=== PATIENT | male | born 1980 | race Caucasian/White ===

== ENCOUNTER → 2021-08-26 10:12 | Outpatient (CLI) | payer OTHER, SELFPAY ==
--- NOTE | ~2021-08-26 | US_ITS ---
EXAMINATION: US scrotum doppler DATE: 08/26/2021 10:38 INDICATION: Scrotal mass. TECHNIQUE: Grayscale and Doppler ultrasound images of the testes were obtained. COMPARISON: Ultrasound 07/28/2010 FINDINGS: The right testis measures 5.0 x 2.2 x 3.1 cm. The left testis measures 4.2 x 2.6 x 2.9 cm. There is normal vascular flow to both testes. The right epididymis demonstrates a 4 mm cyst. The left epididymis demonstrates a 4.9 cm cyst. There is no varicocele or hydrocele. IMPRESSION: 1. Benign cysts in the epididymides. Reviewed, dictated and finalized at location A.
== END ==
PROVIDERS: PCP Internal Medicine; Visit Provider Urology
DX: N50.89 Other specified disorders of the male genital organs (principal); N50.3 Cyst of epididymis
CPT/HCPCS: 76870; 93976

== ENCOUNTER 2021-10-08 13:27 | Outpatient (CLI) | payer OTHER, SELFPAY ==
--- NOTE | 2021-10-08 13:34 | ECG_ITS ---
Measurements Intervals [place] Rate: 67 P: 70 ND: 148 QRS: 51 QRSD: 97 T: -8 QT: 384 QTc: 405 Interpretive Statements SINUS RHYTHM POSSIBLE LEFT ATRIAL ENLARGEMENT BORDERLINE T WAVE ABNORMALITY- INF/LAT LEADS BASELINE ARTIFACT- I, II, III, AVR, AVL, AVF, V4-V6 BORDERLINE ECG Electronically Signed On 10-08-2021 15:37:13 CDT by Mauricio Turcios D.O.
== END 2021-10-08 13:28 | disposition home or self-care (01) ==
PROVIDERS: PCP Internal Medicine; Visit Provider Urology
DX: N50.3 Cyst of epididymis (principal); I10 Essential (primary) hypertension; Z01.818 Encounter for other preprocedural examination; R94.31 Abnormal electrocardiogram [ECG] [EKG]
CPT/HCPCS: 87086; 93005

== ENCOUNTER 2021-10-12 00:09 | Day surgery (SDC) | payer OTHER, SELFPAY ==
[2021-10-08 09:24] VITALS: BMI 26.2
--- NOTE | 2021-10-08 09:35 | PC.NURSE ---
Report to the Outpatient Waiting Room, entrance under the green pavilion located off [facility], at time 6:30 on date 10/12/21. OR Time: 8:30. - You and your visitor will be asked a series of questions to screen for COVID 19 for your protection. - Only one visitor is allowed at this time. - The patient visitor is requested to leave or wait in car when not with patient. - A mask is required within the hospital. Patients may have clear liquids (water, carbonated beverages, clear teas, apple juice) until 3 hours prior to surgery (5:30) with a maximum of 20 ounces. - No food from midnight until time of surgery Take the following medications with a SIP of water the morning of surgery: AMLODIPINE Medications to discontinue per physician: N/A Date to take last dose: N/A Please no make-up, nail welsh, hairspray, perfume, deodorant, or body powder the day of surgery. No jewelry (including any body piercings) or valuables the day of surgery, leave them at home. Please take a shower or bath the night before, or the morning of, surgery with an antibacterial soap. Wear comfortable, loose fitting clothing. - Jewelry must be removed prior to entering the operating room. Rings and piercings that are not removed may be cut off. - The hospital will not accept responsibility for valuables. - Please leave all valuables, including medications, at home the day of surgery. If you are going home after surgery, a licensed long haul truck driver must drive you home. - NO public transportation without another adult. - We recommend that an adult stay with you for 24 hours following discharge. - We also recommend that you do not drive, make important decision, drink alcoholic beverages, or take any drugs that were not prescribed by your health care provider for at least 24 hours after your discharge time. Follow any additional instructions given to you from your surgeon. If you or anyone in your household have experienced Covid symptoms in the past week, please notify your surgeon or the nurse liaison at the phone number below for possible testing. Telephone instructions given to PT - AWAIS ARANDA and asked if any additional questions and then verbalized understanding. Patient advised to call surgeon office or pre surgery nurse liaison [phone] if any additional questions.
--- NOTE | 2021-10-11 15:05 | P.PNAN_ITS ---
Anes - Initial Pre Proc Eval Procedure: Operation Date: 10/12/21 08:30 Proposed Procedures p Scrotal Exploration with Excision of Left Epididymal Cyst - Price Linares MD s Bilateral Vasectomy - Price Linares MD Date/Time: 10/11/21 15:05 Surgeon: Price Linares MD Pre Op Diagnosis: left epidermal cyst Patient Data Age: 40 Gender: M Height: 1.91 m Weight: 95.25 kg Allergies Allergy/AdvReac Type Severity Reaction Status Date / Time No Known Allergies Allergy Mild Verified 10/12/21 06:45 Home Medications Medication Instructions Recorded Confirmed Type amlodipine 10 mg tablet 10 mg PO DAILY #90 tabs 10/11/21 10/12/21 Rx simvastatin 40 mg tablet 40 mg PO DAILY #90 tabs 10/11/21 10/12/21 Rx Patient hx anesthesia problems: post op nausea/vomiting Family hx anesthesia problems: none Results Review: All pre-operative results and documents have been reviewed as part of the pre- operative evaluation. FORMERLY [facility] Past Medical History Medical History Hyperlipidemia LDL goal <130 Hypertension Family History Family History Father Family history of elevated blood lipids Family history of type 2 diabetes mellitus Mother Family history of elevated blood lipids Family history of heart disease in male family member before age 55 Social History Social History Smoking status: Never smoker Second hand tobacco smoke exposure: No Alcohol intake: current Alcohol use details: 4/MONTH Substance use: never Substance use type: does not use Living arrangements: with family Spiritual care concerns: No Anes - Eval Final PreProcedure Day of Procedure 10/11/21 15:05 Patient weight: overweight Heart: regular rate and rhythm Lungs: clear to auscultation Airway: Mallampati scale class II Neurological: alert and oriented Last oral intake: >/= 8 hours ASA classification: II Emergent: no Anesthetic plan: proceed Anesthesia type and monitoring: general LMA and standard monitoring Results Review: All pre-operative results and documents have been reviewed as part of the pre- operative evaluation. Informed Consent: The patient's anesthetic plan and its attendant risks and benefits were discussed with the patient/family/POA. Questions were solicited and answers provided to the satisfaction of the patient/family/POA.
[2021-10-12] VITALS (9 sets, daily range): BP systolic 128–146; BP diastolic 80–95; PULSE 59–88; RESP 12–20; TEMP 35.8–36.5; O2SAT 94–100
[2021-10-12] MEDS: LACTATED RINGERS 1,000 ML 30 ML IV CONT (07:05)
[2021-10-12] MEDS: SCOPOLAMINE 1.5 MG PATCH TRANSDERM (07:21)
--- NOTE | 2021-10-12 08:15 | WPDHPUPDATE1 ---
History and Physical Update Update Date/Time: 10/12/21 08:15 History and Physical has been reviewed, including an updated exam of the patient. There are NO changes in the patient's condition. Risks, benefits, and alternatives have been discussed and questions answered. Patient agrees to proceed with procedure. Proceed with scrotal exploration with excision of left epididymal cyst and bilateral vasectomy
--- NOTE | 2021-10-12 08:17 | WPDHPUPDATE1 ---
History and Physical Update Update Date/Time: 10/12/21 08:17 History and Physical has been reviewed, including an updated exam of the patient. There are NO changes in the patient's condition. Risks, benefits, and alternatives have been discussed and questions answered. Patient agrees to proceed with procedure.
--- NOTE | 2021-10-12 08:25 | PM.IMHP ---
H&P: HPI History of Present Illness Date/Time: 10/12/21 08:25 Chief Complaint: left scrotal lesion and fertility Narrative: 34 yr old presents for excision of scrotal lesion and bilateral vasectomy Review of Systems Review of Systems: All systems reviewed & are unremarkable except as noted in HPI and below PMFSH Past Medical History Medical History (Updated 10/12/21 @ 08:27 by Price Linares MD) Hyperlipidemia LDL goal <130 Hypertension Family History Family History Father Family history of elevated blood lipids Family history of type 2 diabetes mellitus Mother Family history of elevated blood lipids Family history of heart disease in male family member before age 55 Social History Social History Smoking status: Never smoker Second hand tobacco smoke exposure: No Alcohol intake: current Alcohol use details: 4/MONTH Substance use: never Substance use type: does not use Living arrangements: with family Spiritual care concerns: No Meds Home Medications and Allergies Home Medications Medication Instructions Recorded Confirmed Type amlodipine 10 mg tablet 10 mg PO DAILY #90 tabs 10/11/21 10/12/21 Rx simvastatin 40 mg tablet 40 mg PO DAILY #90 tabs 10/11/21 10/12/21 Rx Allergies Allergy/AdvReac Type Severity Reaction Status Date / Time No Known Allergies Allergy Mild Verified 10/12/21 06:45 Vital Signs Vital Signs - 24 hr 10/12/21 06:49 Temperature 35.8 C L Pulse Rate 68 Respiratory Rate 20 Blood Pressure 141/82 H Pulse Oximetry 98 Oxygen Delivery Room Air Exam Chest: Chest palpation & inspection: normal inspection of the chest Resp: Effort & Inspection: normal respiratory effort Cardio: Rate: regular rate Rhythm: regular rhythm : Scrotum: scrotal mass (left) Assessment and Plan Assessment and plan (1) Scrotal lesion: Code(s): N50.9 - Disorder of male genital organs, unspecified Status: Acute Assessment and Plan: Proceed with excision of left scrotal lesion and bilateral vasectomy (2) Unwanted fertility: Code(s): Z30.09 - Encounter for other general counseling and advice on contraception Status: Acute
[2021-10-12] MEDS: ceFAZolin 2 GM/D5W 50 ML 2 GM/50 ML BAG IVPB (08:31)
--- NOTE | 2021-10-12 09:25 | P.OP_ITS ---
Procedure Note - Detailed Date of Procedure 10/12/21 Pre-op Diagnosis Left scrotal cyst, fertility Post-op Diagnosis Same Procedure Performed Scrotal exploration with excision of left scrotal cyst, bilateral vasectomy Surgeon Price Linares MD Anesthesia General Description of Procedure Patient was taken to the operative suite and correctly identified. Once anesthesia was obtained, he was prepped and draped usual sterile fashion. Patient has a proximally 3 cm left scrotal cyst. We made an incision over the left hemiscrotum carried it down to the tunical level. We then got into the scrotal contents. The testicle and the cysts were then brought out to the operative field. It did not appear as if this cyst was attached in any way to the epididymis or testicle. We dissected this cyst out. It was kept intact and sent for analysis. We then isolated the left vas. A segment was excised. The ends were fulgurated ligated and buried. We anesthetized the cord with Marcaine. We then isolated the right vas through a separate incision. This vas was also excised with the ends fulgurated ligated and buried. The cord also was anesthetized with Marcaine. We then placed a quarter-inch [place] drain in the left hemiscrotum through a separate stab incision. This was secured using 3-0 chromic. The tunica was closed using 3-0 chromic. Skin incision was also closed in running fashion with 3-0 chromic. The skin incisions were anesthetized. Patient was taken recovery stable condition. The remove the drain in a couple days of minimal drainage. I should also state that the testes epididymis was fulgurated. Estimated Blood Loss 0 Drains Yes Packing No Pathology Yes Complications No immediate complications Condition Stable Disposition PACU
[2021-10-12] MEDS: oxyCODONE HCL (*CRX) 5 MG TAB IR PO (10:39)
== END 2021-10-12 11:30 | disposition home or self-care (01) ==
PROVIDERS: PCP Internal Medicine; Visit Provider Urology
PROC: (CPT 55110; principal; 2021-10-12 08:30)
PROC: (CPT 55250; 2021-10-12 08:30)
DX: Z30.2 Encounter for sterilization (principal); L72.8 Other follicular cysts of the skin and subcutaneous tissue; I10 Essential (primary) hypertension; E78.5 Hyperlipidemia, unspecified
CPT/HCPCS: 55250; 11423; 87086; 88300; 88305; 93005; A9270; J0690; J1100; J2250; J2405; J2704; J2765; J3010; J7120

== ENCOUNTER 2022-07-18 11:37 | Outpatient (CLI) | payer OTHER, SELFPAY ==
[2022-07-18 21:06] LABS: Alanine Aminotransferase 51 U/L (6-50); Alkaline Phosphatase 74 U/L (38-126); Anion Gap 7 mmol/L (8-16); Aspartate Amino Transferase 52 U/L (17-59); Bilirubin,Total 0.6 mg/dL (0.2-1.3); Blood Urea Nitrogen 19 mg/dL (9-20); Calcium 9.8 mg/dL (8.4-10.2); Carbon Dioxide 35 mmol/L (22-30); Chloride 99 mmol/L (98-107); Cholesterol 171 mg/dL (0-200); Estimated Glomerular Filt Rate > 60; Glucose 91 mg/dL (65-110); HDL Direct 38 mg/dL; Potassium 4.1 mmol/L (3.4-5.0); Sodium 141 mmol/L (137-145); Triglycerides 204 mg/dL (<150)
[2022-07-18 21:17] LABS: LDL Cholesterol Direct 98 mg/dL
== END 2022-07-18 11:38 | disposition home or self-care (01) ==
LOC: ANHGOSHLAB 11:38
PROVIDERS: PCP Family Medicine; Visit Provider Family Medicine
DX: E78.5 Hyperlipidemia, unspecified (principal); I10 Essential (primary) hypertension
CPT/HCPCS: 36415; 80053; 80061

== ENCOUNTER 2023-04-10 09:14 | Outpatient (CLI) | payer OTHER, SELFPAY ==
[2023-04-10 13:18] LABS: Basophils Percent Auto 0.6 % (0.2-1.2); Eosinophils Absolute Auto 0.1 K/mm3 (0-0.3); Eosinophils Percent Auto 1.6 % (0-4.4); Hematocrit 47.4 % (42.0-52.0); Hemoglobin 15.1 g/dL (14.0-18.0); Immature Granulocyte Absolute 0.01 K/mm3 (0.00-0.031); Immature Granulocyte Percent A 0.2 % (0-0.5); Lymphocytes Absolute Auto 1.61 K/mm3 (0.9-3.2); Lymphocytes Percent Auto 32.7 % (18.3-44.2); Mean Corpuscular HGB Conc 31.9 g/dl (32-36); Mean Corpuscular Hemoglobin 28.7 pg (26-34); Mean Corpuscular Volume 89.9 fl (80-100); Mean Platelet Volume 10.8 fl (7.4-10.4); Monocytes Absolute Auto 0.4 K/mm3 (0.1-0.6); Monocytes Percent Auto 7.7 % (2.6-8.5); Neutrophils Absolute Auto 2.8 K/mm3 (1.3-6.7); Neutrophils Percent Auto 57.2 % (45.5-73.1); Platelet Count Result 193 k/mm3 (150-375); Red Blood Count 5.27 M/mm3 (4.6-6.20); Red Cell Distribution Width 12.3 % (11.5-14.5); White Blood Count 4.9 K/mm3 (4.5-10.0)
[2023-04-10 13:19] LABS: Alanine Aminotransferase 42 U/L (6-50); Albumin Level 4.4 g/dL (3.5-5.1); Alkaline Phosphatase 66 U/L (38-126); Anion Gap 7 mmol/L (8-16); Aspartate Amino Transferase 43 U/L (17-59); Bilirubin,Total 0.6 mg/dL (0.2-1.3); Blood Urea Nitrogen 15 mg/dL (9-20); Calcium 9.4 mg/dL (8.4-10.2); Carbon Dioxide 31 mmol/L (22-30); Chloride 104 mmol/L (98-107); Cholesterol 131 mg/dL (0-200); Estimated Glomerular Filt Rate > 60; Glucose 99 mg/dL (65-110); HDL Direct 33 mg/dL; Potassium 4.1 mmol/L (3.4-5.0); Sodium 142 mmol/L (137-145); Triglycerides 95 mg/dL (<150)
[2023-04-10 13:30] LABS: LDL Cholesterol Direct 81 mg/dL
[2023-04-10 13:43] LABS: Prostate Specific Antigen 1.8 ng/mL (< OR = 4.0)
== END 2023-04-10 09:15 | disposition home or self-care (01) ==
LOC: ANHGOSHLAB 09:15
PROVIDERS: PCP Family Medicine; Visit Provider Family Medicine
DX: Z12.5 Encounter for screening for malignant neoplasm of prostate (principal); R53.83 Other fatigue; Z13.228 Encounter for screening for other metabolic disorders; Z13.220 Encounter for screening for lipoid disorders
CPT/HCPCS: 36415; 80053; 80061; 84153; 85025; G0103

== ENCOUNTER 2024-02-09 09:15 | Outpatient (NON) | payer OTHER, SELFPAY | END 2024-02-09 09:16 | disposition home or self-care (01) | LOC: ANHLAB 09:16 | PROVIDERS: PCP Family Medicine; Visit Provider Internal Medicine Gastroenterology | DX: Z12.11 Encounter for screening for malignant neoplasm of colon (principal); K63.5 Polyp of colon | CPT/HCPCS: 88305 ==

== ENCOUNTER 2024-09-29 03:54 | Emergency (ER) | payer OTHER, SELFPAY ==
--- NOTE | ~2024-09-29 | XR_ITS ---
Portable chest x-ray Comparison: None Clinical History: Chest pain Findings: Lungs are clear, without focal consolidation or pleural effusion. Cardiomediastinal silho uette is unremarkable. Bones and soft tissues are unremarkable. Impression: Clear lungs. Reviewed, dictated and finalized at location M. Impression: Clear lungs.
--- NOTE | 2024-09-29 03:56 | ECG_ITS ---
Test Date: 2024-09-29 03:58:47 Measurements Intervals [place] Rate: 65 P: 65 OR: 161 QRS: 60 QRSD: 101 T: 32 QT: 368 QTc: 385 Interpretive Statements SINUS RHYTHM NONSPECIFIC T-WAVE ABNORMALITY- INFERIOR LEADS BORDERLINE ECG No previous ECG available for comparison Electronically Signed On 09-29-2024 08:26:44 CDT by Mauricio Turcios D.O.
[2024-09-29 03:57] VITALS: BP 143/92; PULSE 65; RESP 20; TEMP 36.4; O2SAT 98
[2024-09-29 05:44] VITALS: BP 142/100; PULSE 61; PULSE 65; RESP 14; TEMP 36.4; O2SAT 97
[2024-09-29] MEDS: ASPIRIN 81 MG CHEWABLE TABLET 324 MG PO (05:46)
[2024-09-29 05:53] VITALS: O2SAT 97
[2024-09-29 06:03] LABS: Basophils Percent Auto 0.5 % (0.2-1.2); Eosinophils Absolute Auto 0.2 K/mm3 (0-0.3); Eosinophils Percent Auto 2.7 % (0-4.4); Hematocrit 45.1 % (42.0-52.0); Hemoglobin 14.9 g/dL (14.0-18.0); Immature Granulocyte Absolute 0.01 K/mm3 (0.00-0.031); Immature Granulocyte Percent A 0.2 % (0-0.5); Lymphocytes Absolute Auto 2.32 K/mm3 (0.9-3.2); Lymphocytes Percent Auto 38.8 % (18.3-44.2); Mean Corpuscular Hemoglobin 28.7 pg (26-34); Mean Corpuscular Volume 86.7 fl (80-100); Mean Platelet Volume 10.4 fl (7.4-10.4); Monocytes Absolute Auto 0.5 K/mm3 (0.1-0.6); Monocytes Percent Auto 8.9 % (2.6-8.5); Neutrophils Absolute Auto 2.9 K/mm3 (1.3-6.7); Neutrophils Percent Auto 48.9 % (45.5-73.1); Platelet Count Result 203 k/mm3 (150-375); Red Cell Distribution Width 12.1 % (11.5-14.5)
[2024-09-29 06:17] LABS: INR 1.1; Prothrombin Time 13.7 Seconds (11.1-14.7)
[2024-09-29 06:18] LABS: Alanine Aminotransferase 33 U/L (6-50); Albumin Level 4.7 g/dL (3.5-5.1); Alkaline Phosphatase 55 U/L (38-126); Anion Gap 9 mmol/L (4-12); Aspartate Amino Transferase 38 U/L (17-59); Bilirubin,Total 0.4 mg/dL (0.2-1.3); Blood Urea Nitrogen 17 mg/dL (9-20); Calcium 9.4 mg/dL (8.4-10.2); Carbon Dioxide 26 mmol/L (22-30); Chloride 105 mmol/L (98-107); Estimated CRCL calculation 95 ml/min; Estimated Glomerular Filt Rate > 60; Glucose 96 mg/dL (65-110); Lipase 55 U/L (23-300); Sodium 140 mmol/L (137-145); Total Protein 8.1 g/dL (6.3-8.2)
[2024-09-29 06:23] LABS: Partial Thromboplastin Time 28.9 Seconds (22.3-36.8)
[2024-09-29 06:30] LABS: Troponin I < 0.012 ng/mL (0.000-0.034)
--- NOTE | 2024-09-29 07:41 | ED.GENADULT ---
HPI - General Adult General Chief complaint: Chest Pain Stated complaint: CHEST PAIN Time Seen by Provider: 09/29/24 06:58 History of Present Illness HPI narrative: This 43-year-old male presenting with chest pain. 2:45 a.m. he was sleeping as well and sleep a pressure in the center his chest. He also had left arm numbness. Pain was 6/10 intensity went on off 2 hours before resolving its own. He has never had pain like this before there are no exacerbating alleviating factors. Patient said he had some mild shortness of this happened. There was no vomiting exertion diaphoresis. Patient does have a history of panic attacks. No recent illness or hospitalizations. Patient is currently asymptomatic Related Data Allergies Allergy/AdvReac Type Severity Reaction Status Date / Time No Known Allergies Allergy Mild Verified 09/29/24 05:46 FOR[facility]LY [facility], [facility] Past Medical History Medical History (Updated 09/29/24 @ 07:45 by Baltazar Pereira MD) Unwanted fertility Encounter for screening colonoscopy Hypertension Hyperlipidemia LDL goal <130 Surgical History Surgical History History of vasectomy (~2021) Family History Family History Father Family history of elevated blood lipids Family history of type 2 diabetes mellitus Mother Family history of elevated blood lipids Family history of heart disease in male family member before age 55 Social History Social History Smoking status: Never smoker Second hand tobacco smoke exposure: No Alcohol intake: current Drinks per week: 2 Substance use: never Substance use type: does not use Lack of Transportation: No Lack of Food: Never True Current Housing: I Have Housing Concerned About Future Housing: No Difficulty Paying Gas/Electric Bills: No Difficulty Paying for Meds: No Currently Unemployed: No Education: Bachelor's Degree Difficulty w/ Childcare or Family Care: No Living arrangements: with family Spiritual care concerns: No Agree to blood products: Yes Exam Narrative: APPEARANCE: No apparent distress. Well-appearing Head: atraumatic. EYES: EOMI, NOSE: Atraumatic NECK: Trachea midline RESPIRATORY: No increased rate of breathing CTAB CARDIOVASCULAR: RRR, no peripheral edema ABDOMINAL: Non-distended soft nontender MUSCULOSKELETAl: No obvious deformities NEURO: Alert. Moving 4/4 extremities SKIN:: Warm, dry. Normal color PSYCHIATRIC: Normal affect Course Vital Signs Vital signs: Vital Signs Temperature 97.6 F 09/29/24 03:57 Pulse Rate 65 09/29/24 03:57 Respiratory Rate 20 09/29/24 03:57 Blood Pressure 143/92 H 09/29/24 03:57 Pulse Oximetry 98 09/29/24 03:57 Temperature 97.6 F 09/29/24 05:44 Pulse Rate 77 09/29/24 09:26 Respiratory Rate 15 09/29/24 09:26 Blood Pressure 146/93 H 09/29/24 09:26 Pulse Oximetry 96 09/29/24 09:26 Oxygen Delivery Room Air 09/29/24 05:53 Medical Decision Making MDM Narrative Medical decision making narrative: -Course: 43-year-old male presenting with chest pain. Chest pain workup laboratory studies chest x-ray EKG x2 in troponin x2 were all negative. Patient's heart score 1. Chest pain-free. Patient cannot for outpatient follow-up refer to cardiology further evaluation. -DDX includes but is not limited to: ACS, anxiety/panic attack, pneumonia pneumothorax aortic dissection esophageal rupture the -Co-morbidities complicating care: Hypertension, hyperlipidemia -Dx tests considered but not ordered: Perc negative Independent EKG interpretation: Rhythm [sinus], Rate [65], [place] -[normal], NE -[normal], QRS [narrow], QTC [normal], T waves -[negative for concerning inversions], ST Segments - [Negative for concerning elevations] Final interpretations: [Normal Sinus Rhythm] Vital Signs Vital Signs: Vital Signs Temperature 97.6 F 09/29/24 03:57 Pulse Rate 65 09/29/24 03:57 Respiratory Rate 20 09/29/24 03:57 Blood Pressure 143/92 H 09/29/24 03:57 Pulse Oximetry 98 09/29/24 03:57 Temperature 97.6 F 09/29/24 05:44 Pulse Rate 77 09/29/24 09:26 Respiratory Rate 15 09/29/24 09:26 Blood Pressure 146/93 H 09/29/24 09:26 Pulse Oximetry 96 09/29/24 09:26 Oxygen Delivery Room Air 09/29/24 05:53 Lab Data 09/29/24 05:50 09/29/24 05:50 Labs: Lab Results 09/29/24 09/29/24 Range/Units 05:50 08:19 WBC 6.0 (4.5-10.0) K/mm3 RBC 5.20 (4.6-6.20) M/mm3 Hgb 14.9 (14.0-18.0) g/dL Hct 45.1 (42.0-52.0) % MCV 86.7 (80-100) fl MCH 28.7 (26-34) pg MCHC 33.0 (32-36) g/dl RDW 12.1 (11.5-14.5) % Plt Count 203 (150-375) k/mm3 MPV 10.4 (7.4-10.4) fl Immature Gran % (Auto) 0.2 (0-0.5) % Neut % (Auto) 48.9 (45.5-73.1) % Lymph % (Auto) 38.8 (18.3-44.2) % [place] % (Auto) 8.9 H (2.6-8.5) % Eos % (Auto) 2.7 (0-4.4) % Baso % (Auto) 0.5 (0.2-1.2) % Lymph # (Auto) 2.32 (0.9-3.2) K/mm3 [place] # (Auto) 0.5 (0.1-0.6) K/mm3 Eos # (Auto) 0.2 (0-0.3) K/mm3 Baso # (Auto) 0.0 (0.0-0.1) K/mm3 Abs Immat Gran (auto) 0.01 (0.00-0.031) K/mm3 Absolute Neuts (auto) 2.9 (1.3-6.7) K/mm3 Absolute Nucleated RBC 0.000 (0.0-0.012) K/mm3 Nucleated RBC % 0.0 (0.0-0.2) % PT 13.7 (11.1-14.7) Seconds INR 1.1 APTT 28.9 (22.3-36.8) Seconds Sodium 140 (137-145) mmol/L Potassium 4.0 (3.4-5.0) mmol/L Chloride 105 (98-107) mmol/L Carbon Dioxide 26 (22-30) mmol/L Anion Gap 9 (4-12) mmol/L BUN 17 (9-20) mg/dL Creatinine 1.04 (0.7-1.3) mg/dL Estim Creat Clear Calc 95 ml/min Estimated GFR > 60 (59 - ) Glucose 96 (65-110) mg/dL Calcium 9.4 (8.4-10.2) mg/dL Total Bilirubin 0.4 (0.2-1.3) mg/dL AST 38 (17-59) U/L ALT 33 (6-50) U/L Alkaline Phosphatase 55 (38-126) U/L Troponin I < 0.012 < 0.012 (0.000-0.034) ng/mL Total Protein 8.1 (6.3-8.2) g/dL Albumin 4.7 (3.5-5.1) g/dL Lipase 55 (23-300) U/L Discharge Plan Discharge Clinical Impression: Chest pain Patient Disposition: Home Condition: Stable Instructions: Antibiotic Form, Chest Pain (ED) Additional Instructions: You were seen in the emergency department for chest pain. Your workup here was reassuring and did not show any sign a heart attack. Please follow-up with scrip clerk listed below for further evaluation. Return to the ED if you develop chest pain or any new or worsening symptoms. Patient Language: Spanish Prescriptions: No Action amlodipine 10 mg tablet 10 mg PO DAILY Qty: 90 1RF simvastatin 20 mg tablet 20 mg PO DAILY Qty: 90 1RF Follow-up/Referrals: Kandace Patel APRN [Primary Care Provider] - Mauricio Turcios DO [Physician] - 1 Week (Chest pain ) Quality HEART score for chest pain patients History: slightly suspicious ECG: normal Age: < or = to 45 years Risk factors: 1 or 2 risk factors Troponin: < or = to 1x normal limit Heart score: 1
[2024-09-29 08:06] VITALS: BP 146/99; PULSE 70; RESP 13; O2SAT 95
--- NOTE | 2024-09-29 08:26 | ECG_ITS ---
Test Date: 2024-09-29 08:30:52 Measurements Intervals [place] Rate: 55 P: 62 SD: 165 QRS: 47 QRSD: 90 T: 32 QT: 401 QTc: 386 Interpretive Statements SINUS BRADYCARDIA NONSPECIFIC T-WAVE ABNORMALITY- INFERIOR LEADS BORDERLINE ECG Compared to ECG 09/29/2024 03:58:47 HEART RATE HAS DECREASED Electronically Signed On 09-29-2024 08:32:06 CDT by Mauricio Turcios D.O.
[2024-09-29 09:05] LABS: Troponin I < 0.012 ng/mL (0.000-0.034)
[2024-09-29 09:26] VITALS: BP 146/93; PULSE 77; RESP 15; O2SAT 96
[2024-09-29 09:54] VITALS: BP 146/93; PULSE 68; RESP 16; O2SAT 98
== END 2024-09-29 10:02 | disposition home or self-care (01) ==
PROVIDERS: Student in an Organized Health Care Education/Training Program; Emergency Provider Emergency Medicine; PCP Nurse Practitioner Family
DX: R07.9 Chest pain, unspecified (principal); I10 Essential (primary) hypertension
CPT/HCPCS: 36415; 71045; 80053; 83690; 84484; 85025; 85610; 85730; 93005; 99284; A9270

== ENCOUNTER 2024-12-27 08:35 | Outpatient (CLI) | payer OTHER, SELFPAY ==
--- OUTSIDE RECORDS SUMMARY | 2024-12-27 08:40 | XMS_ITS | Clinical Summary ---
Author Organization [facility] Out[facility] Address [address] [place] [address] Care Team Providers Care Flooring Grader Name Role Phone Matt Borja MD Primary Care Provider [phone] Source Comments [facility],non-owned Affiliates and Associated Physician Practices is amultiple site organization consisting of ambulatory clinics and hospital sitesin [place] and [place]. This disclosure is being madepursuant to the Care Everywhere program and may not contain all information available regarding this patient. Last updated 17.[facility] Allergies No known active allergies Medications * Be aware that medications may not be up to date on this document. Alwaysverify current medications with the patient. HYDROcodone-kay taminophen (NORCO) 5-325 MG tablet Take 1 tablet by mouth every 6 hours as needed 30 tablet 10/11/2017 Active tamsulosin (FLOMAX) 0.4 MG capsule Take 1 capsule by mouth once daily Take 30 minutes after a meal at the same time each day. 30 capsule 1 10/11/2017 Active simvastatin (ZOCOR) 20 MG tablet Take 20 mg by mouth at bedtime Active HYDROcodone-kay taminophen (NORCO) 5-325 MG tablet Take 1 tablet by mouth every 6 hours as needed for Pain 30 tablet 10/27/2017 Active Active Problems Problem Noted Date Diagnosed Date Left ureteral stone 10/09/2017 Social History Tobacco Use Types Packs/Day Years Used Date Smoking Tobacco: Never Smokeless Tobacco: Never Alcohol Use Standard Drinks/Week Comments Yes 0 (1 standard drink = 0.6 oz pur e alcohol) occ Sex and Gender Information Value Date Recorded Sex Assigned at Not on file Legal Sex Male 11:47 AM CDT Gender Identity Not on file Sexual Orientation Not on file Last Filed Vital Signs Vital Sign Reading Time Taken Comments Blood Pressure 135/95 10/27/2017 8:58 AM CDT Pulse 67 10/27/2017 8:58 AM CDT Temperature 36.4 C (97.6 F) 10/27/2017 8:27 AM CDT Respiratory Rate 16 10/27/2017 8:58 AM CDT Oxygen Saturation 94% 10/27/2017 8:58 AM CDT Inhaled Oxygen Concentration - - Weight 94.3 kg (208 lb) 10/27/2017 6:47 AM CDT Height 190.5 cm (6' 3) 10/27/2017 6:47 AM CDT Body Mass Index 26 10/27/2017 6:47 AM CDT Plan of Treatment Health Maintenance Due Date Last Done Comments COLOGUARD (AGES 45-75) - COL ON CA SCREENING 1978 COLON MONITORING 1978 COLONOSCOPY - COLON CA SCREENING 1978 CT COLONOGRAPHY - COLON CA SCREENING 1978 Colorectal Cancer Screening 1978 FIT - COLON CA SCREENING 1978 FLEX SIG - COLON CA SCREENING 1978 HIV SCREENING 1993 HEPATITIS C SCREENING 11/13/1996 DTAP/TDAP/TD VACCINES (1 - Tdap) 1997 HEPATITIS B VACCINE (1 of 3 - 19+ 3-dose series) 1997 DEPRESSION SCREENING 04/03/2024 COVID-19 VACCINE ( - 2023-2 5 season) 2024 INFLUENZA VACCINE (#1) 2024 ZOSTER VACCINE (1 of 2) 2028 HIB VACCINE Aged Out No longer eligi ble based on patient's age to complete this topic HPV VACCINE Aged Out No longer eligi ble based on patient's age to complete this topic MENINGOCOCCAL (Group B) VACC INE SHARED DECISION-MAKING Aged Out No longer eligibl e based on patient's age to complete this topic MENINGOCOCCAL GROUPS A/C/Y/W VACCINE Aged Out No longer eligible b ased on patient's age to complete this topic PNEUMOCOCCAL VACCINE Aged Out No long er eligible based on patient's age to complete this topic Medical Devices Implanted Type Area Ladies' Hat Trimmer Device Identifier Shelf Expiration Date Model / Serial / Lot Set Stent Blk 28cm 6fr .038in 2 Pgtl Crv Implanted:Qty: 1 on 10/10/2017 by Fabian Keyes MD at [facility] Left: [employer] 04/16/2018 [id number] / / [id number] Insurance AETNA AETNA SELF PAY NO INSURANCE Member Subscriber Plan / Payer (Ef fective for All Dates) Name:Awais Aranda Member ID:Not on file Relation to Subscriber:Not on file Name:AWAIS ARANDA Subscriber ID:Not on file (Home) Address: [address] [place], [place] [address] [address] [place] [id number] Payer ID:Not on file Group ID:Not on file Type:Self Pay Address: [place], [place] [employer] Advance Directives * Full Code (Latest Code Status on File) Date Activated Date Inactivated Comments 10/09/2017 5:09 PM 10/11/2017 12:01 PM Care Teams Flooring Grader Relationship Specialty Start Date End Date Matt Borja MD [address] [place] [address] PCP - General Internal Medicine 10/09/17
--- OUTSIDE RECORDS SUMMARY | 2024-12-27 08:40 | XMS_ITS | Clinical Summary ---
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 Gender Identity Not on file Sexual Orientation Not on file Plan of Treatment Health Maintenance Due Date Last Done Comments Hepatitis C Virus (HCV) Screening 1978 TdaP Immunization 1978 Hepatitis B Immunization (1 of 3 - 19+ 3-dose series) 1997 Cologuard 11/19/2023 Colonoscopy 11/19/2023 Colorectal Cancer Screening 11/19/2023 Immunochemical Fecal Occult Blood 11/19/2023 SARS-COV-2 Immunization ( season) 2023 03/03/2021, 07/01/2020, 06/02/2020 Influenza Immunization (#1) 12/02/202412/02, 03/10/2020 Respiratory Syncytial Virus (RSV) Immunization (Adult) (1 - 1-dose 75+ series) 2053 DTaP/Tdap/Td Immunization Discontinued 12/01/1992 Human Papillomavirus (HPV) Immunization Aged Out No longer eligible based on patient's age to complete this topic Meningococcal Immunization (ACWY) Aged Out No longer eligible based on patient's age to complete this topic Pneumococcal Immunization Combined Aged Out No longer eligible based on patient's age to complete this topic Rotavirus Immunization Aged Out No lo nger eligible based on patient's age to complete this topic
--- NOTE | 2024-12-27 08:44 | EST_ITS ---
Patient Info Name: Richard Allen Age: 44 years : 1980 Gender: Male Ht: 75 in Wt: 225 lbs BSA: 2.34 m2 HR: 58 bpm BP: 125 / 80 mmHg Technical Quality: Fair Exam Date: 12/27/2024 8:44 AM Patient Status: O Admit Date: 12/27/2024 Exam Type: CA stress echo Treadmill exercise stress echocardiogram is performed. Spring Layer: Jae Murray III Attending Provider: Kandace Patel Exercise Technologist: Jacki Rodriguez Exercise Physician: Mauricio Turcios DO Stress Echo Findings Left Ventricle Appropriate increase in LV endocardial thickening with systole. Appropriate augmentation of contractility with systole. No wall motion abnormality. Left Ventricle Normal LV systolic function, no wall motion abnormality. Protocol: Akhil Stress ECG Details Stage: REST Duration (min): 0 min : 52 sec Speed (mph): 0.0 Grade (%): 0 HR (bpm): 57 SBP (mmHg): 125 DBP (mmHg): 80 METS: --- Stage: REST Duration (min): 16 min : 43 sec Speed (mph): 0.0 Grade (%): 0 HR (bpm): 85 SBP (mmHg): 125 DBP (mmHg): 80 METS: --- Stage: STAGE 1 Duration (min): 1 min : 0 sec Speed (mph): 1.7 Grade (%): 10 HR (bpm): 103 SBP (mmHg): 125 DBP (mmHg): 80 METS: --- Stage: STAGE 1 Duration (min): 2 min : 0 sec Speed (mph): 1.7 Grade (%): 10 HR (bpm): 112 SBP (mmHg): 125 DBP (mmHg): 80 METS: --- Stage: STAGE 1 Duration (min): 3 min : 0 sec Speed (mph): 1.7 Grade (%): 10 HR (bpm): 119 SBP (mmHg): 159 DBP (mmHg): 63 METS: --- Stage: STAGE 2 Duration (min): 1 min : 0 sec Speed (mph): 2.5 Grade (%): 12 HR (bpm): 126 SBP (mmHg): 159 DBP (mmHg): 63 METS: --- Stage: STAGE 2 Duration (min): 2 min : 0 sec Speed (mph): 2.5 Grade (%): 12 HR (bpm): 140 SBP (mmHg): 157 DBP (mmHg): 64 METS: --- Stage: STAGE 2 Duration (min): 3 min : 0 sec Speed (mph): 2.5 Grade (%): 12 HR (bpm): 146 SBP (mmHg): 157 DBP (mmHg): 64 METS: --- Stage: STAGE 3 Duration (min): 1 min : 0 sec Speed (mph): 3.4 Grade (%): 14 HR (bpm): 149 SBP (mmHg): 169 DBP (mmHg): 65 METS: --- Stage: STAGE 3 Duration (min): 2 min : 0 sec Speed (mph): 3.4 Grade (%): 14 HR (bpm): 162 SBP (mmHg): 169 DBP (mmHg): 65 METS: --- Stage: STAGE 3 Duration (min): 2 min : 8 sec Speed (mph): 0.0 Grade (%): 0 HR (bpm): 164 SBP (mmHg): 169 DBP (mmHg): 65 METS: --- Stage: RECOVERY Duration (min): 0 min : 51 sec Speed (mph): 0.0 Grade (%): 0 HR (bpm): 144 SBP (mmHg): 168 DBP (mmHg): 58 METS: --- Stage: RECOVERY Duration (min): 1 min : 51 sec Speed (mph): 0.0 Grade (%): 0 HR (bpm): 128 SBP (mmHg): 168 DBP (mmHg): 58 METS: --- Stage: RECOVERY Duration (min): 2 min : 51 sec Speed (mph): 0.0 Grade (%): 0 HR (bpm): 106 SBP (mmHg): 181 DBP (mmHg): 48 METS: --- Stage: RECOVERY Duration (min): 3 min : 51 sec Speed (mph): 0.0 Grade (%): 0 HR (bpm): 96 SBP (mmHg): 181 DBP (mmHg): 48 METS: --- Stage: RECOVERY Duration (min): 4 min : 51 sec Speed (mph): 0.0 Grade (%): 0 HR (bpm): 94 SBP (mmHg): 161 DBP (mmHg): 63 METS: --- Stage: RECOVERY Duration (min): 5 min : 51 sec Speed (mph): 0.0 Grade (%): 0 HR (bpm): 92 SBP (mmHg): 161 DBP (mmHg): 63 METS: --- Stage: RECOVERY Duration (min): 6 min : 51 sec Speed (mph): 0.0 Grade (%): 0 HR (bpm): 92 SBP (mmHg): 143 DBP (mmHg): 64 METS: --- Stage: RECOVERY Duration (min): 7 min : 51 sec Speed (mph): 0.0 Grade (%): 0 HR (bpm): 89 SBP (mmHg): 143 DBP (mmHg): 64 METS: --- Stage: RECOVERY Duration (min): 8 min : 50 sec Speed (mph): 0.0 Grade (%): 0 HR (bpm): 90 SBP (mmHg): 139 DBP (mmHg): 77 METS: --- Rest HR: 85 bpm Peak HR: 164 bpm Rest Sys BP: 125 mmHg Peak Sys BP: 181 mmHg Max Pred HR: 174 bpm % Max Pred HR: 94 % Target HR: 148 bpm Max RPP: 29,684 bpm*mmHg Mcginnis Score: -8 Termination Reason: Reached target heart rate or workload Cardiac Symptoms: Shortness of breath Max ST Seg Deviation: 3 mm Total Time: 8 min : 8 sec Rest [place] BP: 80 mmHg Peak [place] BP: 48 mmHg Angina Score: None Total METS: 10.3 Resting ECG Sinus rhythm. Stress ECG No ST changes. Arrhythmias None. Report Signatures Stress ECG Echo
== END 2024-12-27 08:36 | disposition home or self-care (01) ==
PROVIDERS: PCP Nurse Practitioner Family; Visit Provider Nurse Practitioner Family
DX: R07.9 Chest pain, unspecified (principal)
CPT/HCPCS: 93351

== ENCOUNTER 2025-01-21 08:47 | Outpatient (CLI) | payer OTHER, SELFPAY ==
--- NOTE | 2025-02-10 08:59 | WPDHOMESLEEP ---
Sleep Study - Home Unattended Date of Study: 01/21/25 Ordering Provider: Kandace Patel APRN Interpreting Provider: Maya Bennett, DO Home Sleep Study Type: Watch PAT Height: 1.91 m Weight: 99.79 kg Body Mass Index: 27.5 Neck Circumference (inches): 17.7 [place]: 7 Reason for Sleep Study snoring, witnessed apneas Sleep History The patient is a 44-year-old male that had a sleep study ordered for evaluation of sleep apnea. The patient occasionally awakens from sleep short of breath. He rarely awakens at night with heartburn, belching or cough. He constantly snores loud enough that others complain. He constantly has trouble sleeping when he has a cold. He rarely wakes up gasping for air throughout the night. He constantly has breathing problems at night observed by himself or others. He rarely sweats excessively at night. He denies having heart palpitations or irregular heartbeats during the night. He occasionally falls asleep during the day but never while driving. He denies sleep paralysis, cataplexy and hypnagogic/ hypnopompic hallucinations. He rarely has trouble at school or work due to sleepiness. He denies feeling afraid of going to sleep. He rarely has nightmares. He rarely remembers his dreams. He rarely has thoughts racing through his mind rarely feels sad or depressed. He occasionally has anxiety. He rarely has muscular tension. He constantly notices parts of his body jerk. He frequently kicks during the night. He occasionally has crawling and aching feelings in his legs and occasionally has leg pain during the night. He denies grinding his teeth during sleep and denies awakening with morning jaw pain. He denies being bothered by pain during the day. He is rarely awakened by pain during the night. He rarely wakes up feeling stiff in the morning. He denies waking up with sore or achy muscles. He rarely wakes up with pain in the neck, spine and other joints. He goes to bed at 11:00 p.m. on weekdays and at midnight on weekends. It takes him less than 10 minutes to fall asleep. He wakes up once throughout the night at most to use the restroom and he is able to fall back asleep within 10 minutes. He wakes up between 6-7 a.m. on weekdays and between 8-9 a.m. on the weekends. He typically gets 6-7 hours of sleep per night. He will stay in bed for 5-10 minutes after waking up in the morning. He currently lives with his . He denies consuming any caffeinated beverages within 2 hours of bedtime. He denies engaging in physical exercise before bedtime. He will watch television before falling asleep. He denies taking naps in afternoon or the evening. He consumes 2-3 caffeinated beverages per day. He denies tobacco, alcohol and recreational drug use. [facility] Past Medical History Medical History Encounter to establish care Unwanted fertility Encounter for screening colonoscopy Hypertension Hyperlipidemia LDL goal <130 Surgical History Surgical History History of vasectomy (~2021) Family History Family History Father Family history of elevated blood lipids Family history of type 2 diabetes mellitus Mother Family history of elevated blood lipids Family history of heart disease in male family member before age 55 Social History Social History Smoking status: Never smoker Second hand tobacco smoke exposure: No Alcohol intake: current Drinks per week: 2 Substance use: never Substance use type: does not use Lack of Transportation: No Lack of Food: Never True Current Housing: I Have Housing Concerned About Future Housing: No Difficulty Paying Gas/Electric Bills: No Difficulty Paying for Meds: No Currently Unemployed: No Education: Bachelor's Degree Difficulty w/ Childcare or Family Care: No Living arrangements: with family Spiritual care concerns: No Agree to blood products: Yes Medications Home Medications ?Medication ?Instructions ?Recorded ?Confirmed ?Type amlodipine 10 mg tablet See Rx Instructions .Route 12/18/24 12/26/24 Rx .COMPLEX #90 tabs simvastatin 20 mg tablet See Rx Instructions .Route 12/18/24 12/26/24 Rx .COMPLEX #90 tabs fluoxetine 20 mg capsule 20 mg PO DAILY #90 caps 01/27/25 Rx lisinopril 5 mg tablet 5 mg PO DAILY #90 tabs 01/27/25 Rx Sleep Procedure The sleep study was completed using RenovoRxT a technically adequate device with seven channels: peripheral arterial tone, actigraphy, body position, snore, respiratory movement, pulse oximetry, sleep staging, and heart rate. Prior to using the device, the patient received verbal and written instructions for its application and was provided with the help desk phone number for additional telephonic instruction with 24-hour availability of qualified personnel to answer questions. The study was scored using CMS guidelines. Sleep Architecture The total recording time is 8 hrs, 53 min. The total sleep time is 7 hrs, 25 min. Sleep latency is 16 minutes. REM latency is 41 minutes. The patient had 12 episodes of waking. Sleep architecture shows 16.5% deep sleep, 68.8% light sleep, and (as % Total Sleep Time) showed NREM (Light 68.8%; Deep 16.5%), and a 14.7% stage REM. The patient spent 59.1% of total sleep time in the supine position. Sleep efficiency was 83.49. Respiratory Analysis The overall AHI (pAHI 4%:) is 22.6. The overall AHI (pAHI 3%:) is 27.7. The central AHI is 2.1. The AHI was 28.2 in NREM and 25.0 in REM sleep. The AHI was 39.5 in Supine and 10.7 in Non-supine sleep. Percent of Selwyn Escalante respirations is 31.5. Oximetry Data The oxygen desaturation index (FÁTIMA 4%:) is 17.8. The mean saturation is 93%, and the lowest saturation is 83%. Time spent with saturation < 88% is 5.5 minutes. Snoring Profile Snoring average intensity is 41 dB. The patient snored above 45 decibels for 19.5 minutes, 4.4% of sleep time. Cardiac Profile The average pulse rate is 66 beats per minutes. The lowest pulse rate is 48 bpm. The highest pulse rate reported is 99 bpm. Suspected Afib total duration is 0:00:43, (h:m:sec). The longest Afibevent duration is 0:00:43. A suspected arrhythmia flagged in the sleep report does not necessarily imply an arrhythmia condition is present, but rather suggests that further investigation should be considered. A-Fib events < 60 seconds may be artifact. Premature beats occur 0.2 per minute. Assessment and Plan Assessment and Plan (1) DONNA (obstructive sleep apnea): Code(s): G47.33 - Obstructive sleep apnea (adult) (pediatric) Status: Acute Assessment and Plan: The patient had an overall AHI of 22.6 with desaturation down to 83%. This is consistent with moderate sleep apnea. Due to the presence of Selwyn Escalante respirations, he is not a candidate for AutoPAP. I recommend that the patient have a CPAP Titration with the use of a hypnotic to ensure we obtain enough sleep data and find an optimal pressure setting. The patient's sleep history is suggestive of Restless Leg Syndrome. I recommend that the patient have a serum ferritin drawn for evaluation of iron deficiency anemia. If the patient has a serum ferritin less than 75 ng/mL, I recommend starting a daily iron supplement and a Vitamin C supplement for better absorption. If the serum ferritin is greater than 75 ng/mL, I recommend starting a dopamine agonist and titrating the dose until symptoms resolve. There are nonpharmacological methods to treat limb movements including daily exercise, stretching calf muscles before bed, avoiding excessive amounts of caffeine and alcohol, vitamin B supplementation, magnesium lotion massaged into legs before bed, and use of a weighted blanket. (2) Selwyn-Escalante respiration: Code(s): R06.3 - Periodic breathing Status: Acute Assessment and Plan: Selwyn Escalante respirations were present 31.5% of total recording time. I recommend that the patient have an echocardiogram to rule out cardiogenic causes for Selwyn Escalante respirations. Data The data obtained during this sleep study is adequate for interpretation. Certification This sleep study has been reviewed by a board certified sleep medicine physician.
[2025-02-10 10:02] VITALS: BMI 27.5
--- NOTE | 2025-02-10 12:00 | WPDHOMESLEEP ---
Sleep Study - Home Unattended Date of Study: 01/21/25 Ordering Provider: Kandace Patel APRN Interpreting Provider: Annemarie Diehl MD Home Sleep Study Type: Watch PAT Height: 1.91 m Weight: 99.79 kg Body Mass Index: 27.5 Neck Circumference (inches): 17.7 [place]: 7 Sleep History Woodrow Allen is a 44 year old man [facility] Past Medical History Medical History Encounter to establish care Unwanted fertility Encounter for screening colonoscopy Hypertension Hyperlipidemia LDL goal <130 Surgical History Surgical History History of vasectomy (~2021) Family History Family History Father Family history of elevated blood lipids Family history of type 2 diabetes mellitus Mother Family history of elevated blood lipids Family history of heart disease in male family member before age 55 Social History Social History Smoking status: Never smoker Second hand tobacco smoke exposure: No Alcohol intake: current Drinks per week: 2 Substance use: never Substance use type: does not use Lack of Transportation: No Lack of Food: Never True Current Housing: I Have Housing Concerned About Future Housing: No Difficulty Paying Gas/Electric Bills: No Difficulty Paying for Meds: No Currently Unemployed: No Education: Bachelor's Degree Difficulty w/ Childcare or Family Care: No Living arrangements: with family Spiritual care concerns: No Agree to blood products: Yes Medications Home Medications ?Medication ?Instructions ?Recorded ?Confirmed ?Type amlodipine 10 mg tablet See Rx Instructions .Route 12/18/24 12/26/24 Rx .COMPLEX #90 tabs simvastatin 20 mg tablet See Rx Instructions .Route 12/18/24 12/26/24 Rx .COMPLEX #90 tabs fluoxetine 20 mg capsule 20 mg PO DAILY #90 caps 01/27/25 Rx lisinopril 5 mg tablet 5 mg PO DAILY #90 tabs 01/27/25 Rx Sleep Procedure The sleep study was completed using WatchPAT a technically adequate device with seven channels: peripheral arterial tone, actigraphy, body position, snore, respiratory movement, pulse oximetry, sleep staging, and heart rate. Prior to using the device, the patient received verbal and written instructions for its application and was provided with the help desk phone number for additional telephonic instruction with 24-hour availability of qualified personnel to answer questions. The study was scored using [facility] guidelines. Assessment and Plan Data The data obtained during this sleep study is adequate for interpretation. Certification This sleep study has been reviewed by a board certified sleep medicine physician.
== END 2025-01-22 15:20 | disposition home or self-care (01) ==
PROVIDERS: PCP Nurse Practitioner Family; Visit Provider Nurse Practitioner Family
DX: G47.33 Obstructive sleep apnea (adult) (pediatric) (principal); G47.10 Hypersomnia, unspecified
CPT/HCPCS: 95800